=== PATIENT | female | born 1970 | race Caucasian/White ===

== ENCOUNTER 2016-06-08 09:51 | Outpatient (CLI) | payer BC ==
--- NOTE | 2016-06-08 10:27 | DIAGNOSTIC IMAGING REPORT ---
PROCEDURE: XR FOOT 3 VIEWS - LEFT INDICATION: LEFT FOOT PAIN TECHNIQUE: Three views. COMPARISON: None. FINDINGS: Osseous structures and joint spaces are normal. IMPRESSION: 1. Normal left foot.
== END 2016-06-08 23:00 | disposition home or self-care (01) ==
LOC: XR SRH 09:51
DX: M79.672 Pain in left foot (principal)